=== PATIENT | male | born 1950 | race Caucasian/White ===

== ENCOUNTER → 2023-06-15 | Outpatient (CLI) | payer OTHER ==
[2023-06-15 20:52] LABS: Creatinine Urine 88.5 mg/dL (27.00-270.00); Protein, Urine Quantitative 13.3 mg/dL (0.0-11.9)
[2023-06-15 20:55] LABS: Microalbumin, Urine Quant. 11.2 mg/L (0.000-20.000)
== END | disposition home or self-care (01) ==
LOC: LAB SHORT 15:00 → LAB 15:00 → LAB FUT 06-01 16:45 → EDSTATUS 06-01 16:45
PROVIDERS: Internal Medicine Nephrology
DX: N18.2 Chronic kidney disease, stage 2 (mild) (principal); D63.1 Anemia in chronic kidney disease; N25.81 Secondary hyperparathyroidism of renal origin; E55.9 Vitamin D deficiency, unspecified; E29.1 Testicular hypofunction; N40.1 Benign prostatic hyperplasia with lower urinary tract symptoms; R76.9 Abnormal immunological finding in serum, unspecified; R94.5 Abnormal results of liver function studies; R94.6 Abnormal results of thyroid function studies
CPT/HCPCS: 81050; 82043; 82570; 84156

== ENCOUNTER 2024-06-28 07:11 | Day surgery (SDC) | payer OTHER ==
[~2024-06-28] VITALS: Ht 177.8 cm; Wt 70.4 kg
[2024-06-28] VITALS (13 sets, daily range): BP systolic 120–156; BP diastolic 60–88
[~2024-06-28 07:11] MED LIST: ATOR80 PO; Aspir 8181 MG PO; Isosorbide Mono30 MG PO; METO25ER PO; NITR.4SL SL; NORVASC5 MG PO; OMEP20ER PO; RANO500T PO; SYMBICORT 16010.2 GM INH; TIOT18 INH
[2024-06-28] MEDS ORDERED: Verapamil HCL 2.5 MG/ML 2ML Injection ONE (08:19)
[2024-06-28] MEDS ORDERED: NS 1,000 ML IV ONE ×2 (08:20→09:26)
[2024-06-28] MEDS ORDERED: Heparin Sodium 1000 Units/ML 10ML MDV ONE (08:20)
[2024-06-28] MEDS ORDERED: Nitroglycerin 2 MG/20 ML BTL ONE (08:20)
[2024-06-28] MEDS ORDERED: NS 250 ML IV ONE (08:20)
--- NOTE | 2024-06-28 10:54 | NUR ---
PATIENT ARRIVED TO RECOVERY ROOM WITH HOB FLAT. RIGHT GROIN ACCESS WITH ANGIO SEAL IN PLACE. SMALL HEMATOMA NOTED ABOVE ACCESS SITE. SAND BAG IN PLACE. VSS ON RA. PATIENT RESTING COMFORTABLY IN BED. WILL CONTINUE TO MONITOR.
--- NOTE | 2024-06-28 11:15 | NUR ---
R GROIN SITE WITH SAND BAG IN PLACE. SMALL HEMATOMA NOTED ABOVE ACCESS SITE, NO CHANGES IN GROWTH SINCE LAST GROIN CHECK. VSS ON RA. PATIENT RESTING COMFORTABLY IN BED. PATIENT DENYING ANY PAIN.
--- NOTE | 2024-06-28 11:30 | NUR ---
R GROIN HEMATOMA NOTED, SITE NOT GROWING. SANDBAG IN PLACE. VSS ON RA. PATIENT DENYING ANY PAIN. PATIENT VOIDING USING URINAL WITHOUT DIFFICULTY. PATIENT RESTING COMFORTABLY WITH HOB FLAT.
--- NOTE | 2024-06-28 12:03 | NUR ---
SAND BAG REMOVED FROM R GROIN SITE. AREA SOFT, NO EVIDENCE OF ACTIVE BLEEDING. WILL CONTINUE TO MONITOR. HOB FLAT. VSS ON RA. PATIENT DENYING ANY PAIN
--- NOTE | 2024-06-28 12:16 | NUR ---
HOB ELEVATED 30 DEGREES. NO CHANGES IN SMALL HEMATOMA. SITE SOFT, NO EVIDENCE OF ACTIVE BLEEDING. VSS ON RA
--- NOTE | 2024-06-28 12:47 | NUR ---
HOB ELEVATED 60 DEGREES. RIGHT GROIN SOFT/TENDER. VSS ON RA. NO EVIDENCE OF BLEEDING.
--- NOTE | 2024-06-28 13:32 | NUR ---
PATIENT TOLERATING PO INTAKE WELL. R GROIN SITE SOFT/TENDER, NO EVIDENCE OF BLEEDING. VSS ON RA. WILL CONTINUE TO MONITOR
--- NOTE | 2024-06-28 13:44 | NUR ---
PATIENT AMBULATING AND VOIDING WITHOUT DIFFICULTY. RIGHT GROIN SITE SOFT/TENDER, NO EVIDENCE OF BLEEDING. VSS ON RA. DISCHARGE INSTRUCTIONS REVIEWED WITH PATIENT, ALL QUESTIONS WERE ANSWERED.
--- NOTE | 2024-06-28 13:53 | NUR ---
PATIENT DISCAHRGED HOME AT THIS TIME. PIV REMOVED WITHOUT DIFFICULTY, CATHETER INTACT. R GROIN SITE SOFT/TENDER, NO EVIDENCE OF BLEEDING. VSS ON RA. PATIENT WHEELED TO HOSPITAL ENTRANCE AND PATIENT ABLE TO PROVIDE TRANSPORATION HOME SINCE NO SEDATION WAS GIVEN.
== END 2024-06-28 13:56 | disposition home or self-care (01) ==
LOC: MHTC 07:11
DX: I25.708 Atherosclerosis of coronary artery bypass graft(s), unspecified, with other forms of angina pectoris (principal); I25.2 Old myocardial infarction; I10 Essential (primary) hypertension; E78.5 Hyperlipidemia, unspecified; G47.33 Obstructive sleep apnea (adult) (pediatric); Z79.899 Other long term (current) drug therapy; Z88.0 Allergy status to penicillin; Z88.8 Allergy status to other drugs, medicaments and biological substances; Z95.1 Presence of aortocoronary bypass graft
CPT/HCPCS: 76937; 93455; C1760; C1769; C1894; J1644; J7030; J7050; Q9967

== ENCOUNTER 2024-08-10 06:09 | Day surgery (SDC) | payer OTHER ==
[~2024-08-10] VITALS: Ht 457.2 cm; Wt 70.1 kg
[~2024-08-10 06:09] MED LIST changes: +Balanced Salt Epinephrine Irrigation Solution 500 mL IR SCH; +Diazepam 10 MG Tab ONE; +Diazepam 5 MG Tab PO PRN; +Diazepam 5 MG Tab PO SCH; +Lidocaine HCl/Pf 1% 5 ML VIAL XX SCH; +Moxifloxacin HCL 0.5 MG/0.1 ML 0.4MLSYR RIGHTEYE SCH; +Ondansetron 4 MG SoluTab MM PRN; +PHENYLEPHRINE\\TROPICAMIDE\\TETRACAINE OPHTHALMIC DILATING SOLN RIGHTEYE PRN; +Povidone-Iodine 450 DROP/30 ML Solution ONE; +Povidone-Iodine 450 DROP/30 ML Solution RIGHTEYE SCH; +Tetracaine HCl/Pf 0.5% Opth Soln 4 ml ONE; +Triamcinolone Inj Susp 40 MG / ML 1ML Vial INJ SCH
[2024-08-10] MEDS ORDERED: Triamcinolone Inj Susp 40 MG / ML 1ML Vial ONE (06:33)
[2024-08-10] MEDS ORDERED: Lidocaine HCl/Pf 1% 5 ML VIAL ONE (06:34)
[2024-08-10] MEDS ORDERED: propofoL 0 ML IV ONE (07:24)
[2024-08-10 07:50] VITALS: BP 121/67
--- NOTE | 2024-08-10 08:04 | NUR ---
08/10/24 0804 Sofia Lee PT DENIES PAIN/NAUSEA, TOLERATING COFFEE W/O COMPLAINT. PT BELONGINGS RETURNED, INCLUDING BAGGIE W/ CIGARETTES & 6 LIGHTERS FROM [employer].
== END 2024-08-10 08:15 | disposition home or self-care (01) ==
LOC: ORSCSDS 06:09
PROVIDERS: Ophthalmology
PROC: 08RK3JZ Replacement of Left Lens with Synthetic Substitute, Percutaneous Approach (ICD-10-PCS; principal; 2024-08-10 07:30)
DX: H25.813 Combined forms of age-related cataract, bilateral (principal); H52.202 Unspecified astigmatism, left eye; I10 Essential (primary) hypertension; E78.5 Hyperlipidemia, unspecified; I25.10 Atherosclerotic heart disease of native coronary artery without angina pectoris; I25.2 Old myocardial infarction; J44.9 Chronic obstructive pulmonary disease, unspecified; G47.33 Obstructive sleep apnea (adult) (pediatric); F17.210 Nicotine dependence, cigarettes, uncomplicated; Z79.899 Other long term (current) drug therapy
CPT/HCPCS: A9270; J2003; J2704; J3301; V2632

== ENCOUNTER 2024-08-30 08:30 | Day surgery (SDC) | payer OTHER ==
[~2024-08-30] VITALS: Ht 177.8 cm; Wt 70.7 kg
[~2024-08-30 08:30] MED LIST changes: -Diazepam 10 MG Tab ONE; -Diazepam 5 MG Tab PO PRN; -Diazepam 5 MG Tab PO SCH; +Lidocaine HCl/Pf 1% 5 ML VIAL ONE; -Ondansetron 4 MG SoluTab MM PRN; +Triamcinolone Inj Susp 40 MG / ML 1ML Vial ONE
[2024-08-30] MEDS ORDERED: TIOT18 (09:08)
[2024-08-30] MEDS ORDERED: Midazolam HCl 1MG / ML 2ML Vial ONE (09:49)
[2024-08-30] MEDS ORDERED: FentaNYL Citrate 50 MCG/ML 2 ML Injection ONE (10:01)
[2024-08-30 10:30] VITALS: BP 119/63
== END 2024-08-30 10:38 | disposition home or self-care (01) ==
LOC: ORSCSDS 08:30
PROVIDERS: Ophthalmology
PROC: 08RJ3JZ Replacement of Right Lens with Synthetic Substitute, Percutaneous Approach (ICD-10-PCS; principal; 2024-08-30 10:00)
DX: H25.811 Combined forms of age-related cataract, right eye (principal); Z96.1 Presence of intraocular lens; F17.210 Nicotine dependence, cigarettes, uncomplicated; E78.5 Hyperlipidemia, unspecified; I10 Essential (primary) hypertension; R06.02 Shortness of breath; I21.9 Acute myocardial infarction, unspecified; I25.10 Atherosclerotic heart disease of native coronary artery without angina pectoris; I25.2 Old myocardial infarction; Z79.82 Long term (current) use of aspirin; Z79.899 Other long term (current) drug therapy
CPT/HCPCS: J2003; J2250; J3010; J3301; V2632